=== PATIENT | female | born 1985 | race Caucasian/White ===

== ENCOUNTER 2017-09-29 15:10 | Outpatient (CLI) | END 2017-09-29 16:50 | disposition home or self-care (01) ==

== ENCOUNTER 2017-09-29 16:57 | Emergency (ER) | END 2017-09-29 21:18 | disposition left against medical advice (07) ==

== ENCOUNTER 2017-09-30 19:41 | Outpatient (CLI) | END 2017-09-30 23:50 | disposition home or self-care (01) ==

== ENCOUNTER 2017-11-09 09:34 | Inpatient (IN) | END 2017-11-11 12:07 | disposition home or self-care (01) | DRG 775 ==